=== PATIENT | female | born 1955 | race Caucasian/White ===

== ENCOUNTER → 2020-02-22 | Day surgery (SDC) | payer MEDICARE, OTHER ==
--- NOTE | 2020-02-21 10:00 | Diagnostic Imaging Report ---
EXAMINATION: CHEST 2 VIEWS INDICATION: Pre-operative COMPARISON: None FINDINGS: LINES/TUBES:None LUNGS:The lungs are well-inflated. No focal consolidation or pulmonary edema. PLEURA:No pleural effusion or pneumothorax. MEDIASTINUM:The cardiomediastinal silhouette appears normal in size and shape. Atherosclerotic calcifications of the thoracic aorta. BONES/SOFT TISSUES:No acute osseous injury. ABDOMEN:No free air under the diaphragm. Cholecystectomy. IMPRESSION: No focal pneumonia or pulmonary edema. Signed by: Angela Crian MD on 02/21/2020 9:57 AM
--- NOTE | 2020-02-21 13:48 | Pre Op History & Physical ---
DATE OF SURGERY: February 21, 2020. CHIEF COMPLAINT: Lesion in the right side of the tongue. HISTORY OF PRESENT ILLNESS: This 64-year-old female, was noted to have a difficulty with swallowing since September of 2019. The patient claimed that this came on after dental procedure. She had at that time with a lot of swelling in that area on the right side of the tongue. The patient claimed that she had a right-sided 2nd molar procedure. The patient also claimed that she lost about 20 pounds. She denies any choking. She complained of odynophagia at that time and sore throat. The patient was treated with antibiotics and a CT scan of the neck that was done in November, showed the patient has no obvious abnormality in the tongue, showed the patient has an enlarged thyroid with nodules noted in her thyroid. The patient also had a modified barium swallow, which showed the patient has no obvious aspiration or other swallowing this abnormality. The patient has a persistent lesion in the right side of the tongue, which give her discomfort. The examination of the lesion was made more difficult because the patient has difficulty opening her mouth very wide, which has always been the case according to the patient. The patient was scheduled for excisional biopsy of the lesion in November, but this was again canceled because of the coronavirus with restriction of all surgery except absolute emergency. The patient lesion has not improved in size. The lesion has been very annoying to the patient and affecting her activity of daily living. REVIEW OF SYSTEMS: System review showed no recent cardiovascular, respiratory, or GI problem. PAST MEDICAL HISTORY: The patient has a history of rheumatoid arthritis. PAST SURGICAL HISTORY: The patient has previous bladder surgery, ORIF of the right leg, and cholecystectomy. MEDICATIONS: She is on methotrexate, zolpidem, folic acid, sulindac, Orencia, Caltrate, Centrum Silver, and Ecotrin. ALLERGIES: SHE HAS NO KNOWN ALLERGY TO MEDICATION. SOCIAL HISTORY: She is a nonsmoker, nondrinker. FAMILY HISTORY: Noncontributory. PHYSICAL EXAMINATION: VITAL SIGNS: Within normal limits. HEENT: Ear exam showed normal tympanic membrane bilaterally. Nasal exam showed deviated nasal septum on right side about 20%. Oropharynx and oral cavity show a 1.5 cm lesion on the right side of the tongue in the midportion about 3 to 4 cm from the tip of the tongue, which is raised. The patient has history of trismus with only able to open about two fingerbreadths from her mouth, which make palpation of the lesion, possible and visual examination was difficult because of the patient's trismus. NECK: Showed no lymph node or thyroid palpable. CHEST: Showed good air entry bilaterally. CARDIOVASCULAR: Showed S1, S2. No murmur noted. Ms. Corey has a lesion on her tongue, which according to her history since September of 2019, after dental procedure. The lesion has been persistent, irritating, and giving her difficulty with swallowing because of the bump. The suggested treatment is panendoscopy, biopsy, possible excision of biopsy of the lesion, and other necessary procedure. Complication of procedure includes, but not limited to bleeding, infection, dysphagia, perforation of the esophagus, pneumomediastinum, mediastinitis, airway compromise, fractured mandible because of the difficulty with the trismus. Oral incompetence, persistent recurrence of the problem. Alternatives will be continue observation, continue antibiotic therapy, excisional biopsy, or biopsy of lesion in the office setting. The patient has been advised to stop her Ecotrin at least 7 to 10 days before surgery. She has elected to undergo surgical procedure. MD CHAPIN Patel/DANTE /[id number] cc: Willis Young
[~2020-02-22] MED LIST: ACETAMINOPHEN 1000 MG/100 ML IV ONE; AMBIEN10 MG PO; CALTRATE PO; CENTRUM SILVER1 EAC3 PO; FENTANYL CITRATE/PF 100MCG/2 ML INJ ONE; FOLIC ACID0.8 M1 PO; LIDOCAINE 1% W/EPINEPHRINE 20 ML VIAL ONE; LIDOCAINE HCL 2% JELLY 5 ML TUBE ONE; LIDOCAINE HCL 2% LOCAL INJ 5 ML SDV VIAL INJ ONE; ONDANSETRON HCL INJ 2MG/ML 2ML 2 MG/ML VIAL ONE; ORENCIA125 MG/1 M IV; PROPOFOL IV EMULSION 10 MG/ML 20 ML VIAL ONE; ROCURONIUM BROMIDE 10 MG/ML 5ML VIAL IV ONE; SEVOFLURANE INHAL SOLN 250 ML PEN BTL ONE; SULINDAC150 MG PO
[2020-02-22 11:40] VITALS: BP 137/74
--- NOTE | 2020-02-23 16:41 | Operative Report ---
DATE OF PROCEDURE: 02/22/2020 SURGEON: Jose Carlos Jenkins MD CHIEF COMPLAINT: Lesion in the right midportion of the tongue and dysphagia. POSTOPERATIVE DIAGNOSIS: Lesion in the right midportion of the tongue and dysphagia. OPERATIVE PROCEDURE: Direct laryngoscopy, rigid esophagoscopy, rigid bronchoscopy, excision of lesion in the right tongue, and fine-needle aspiration of the right tongue lesion. ANESTHESIA: [facility]. HISTORY OF PRESENT ILLNESS: This 64-year-old female has been having trouble swallowing since October of this year. According the patient, this started off with some a dental procedure in September 2019. The patient claimed that she has swelling in the tongue since then. The patient has been having dysphagia. Her activity of daily living is affected. The procedure initially was postponed because of the coronavirus pandemic, but which restricted only absolutely emergency cases. The patient had a CT scan of the tongue and neck with contrast, which did not show any abnormality. The patient also had a modified barium swallow, which the patient has persistent lesion on the midportion of the tongue on the dorsum about 1 cm to 1.5 cm. Condition has not improved. This is a question of weight loss for the patient. It was decided that panendoscopy, biopsy of the lesion, and other necessary procedure will be beneficial for her. It should be noted that, however, the patient does have difficulty with opening her mouth more than at most 2 fingerbreadths, this has been the defect. The patient has "all her life." DESCRIPTION OF PROCEDURE: The patient was taken to operating room, put under general anesthesia, endotracheally intubated. The rigid esophagoscopy was performed. Esophagoscope was attempt to pass through the cricopharyngeus muscle, this was difficult because the patient not able to open the mouth. This was not attempted in fear of fracturing the patient's teeth or mandible. Rigid bronchoscopy was also attempted, but not possible. Using a Dedo laryngoscope, the tongue was examined, the lesion was noted to be about 4 cm from the tip of the tongue on the dorsum of the tongue on the right side. Size of the defect was about 1 cm. Retracting the tongue anteriorly was not completely possible because of tongue. The patient has restriction of the tongue movement and also of course because of the trismus that she always have with difficulty opening her mouth. Attempt biopsy of the tongue lesion was done initially tried using a 21-gauge needle and 3 mL syringe to aspirate the area, this was not very successful. Submucosal biopsies of lesion were undertaken. The area where the lesion was injected with 1% Xylocaine with 1:100,000 epinephrine for hemostasis. An incision was made anterior to the lesion because the full exposure of the lesion transorally was not possible, this was done using an #11 blade and using a cup forceps was able to slide submucosally into the lesion with digital palpation and biopsy of the lesion was undertaken in a submucosal fashion. This was sent for permanent section. The patient tolerated the above procedure well with minimal blood loss. She was given 20 mg of Decadron intraoperatively. The patient was able to be transferred to recovery room in stable condition. MD ROE Patel/MODL /[id number] cc: Willis Young
== END | disposition home or self-care (01) ==
LOC: OR 07:35
PROVIDERS: ATTEND Otolaryngology Otolaryngology/Facial Plastic Surgery
DX: C02.0 Malignant neoplasm of dorsal surface of tongue (principal); R13.10 Dysphagia, unspecified; M06.9 Rheumatoid arthritis, unspecified; N20.0 Calculus of kidney; Z01.810 Encounter for preprocedural cardiovascular examination; Z01.812 Encounter for preprocedural laboratory examination; Z01.818 Encounter for other preprocedural examination; Z11.59 Encounter for screening for other viral diseases; Z86.718 Personal history of other venous thrombosis and embolism
CPT/HCPCS: 31525; 41100; 71046; 87635; 88305; 88331; 88342; 93005; J0131; J2001 ×2; J2405; J2704; J3010